=== PATIENT | female | born 1975 | race Caucasian/White ===

== ENCOUNTER 2019-12-18 10:02 | Day surgery (SDC) | payer BC, SELFPAY ==
[2019-12-16 12:27] VITALS: BMI 21.4
--- NOTE | 2019-12-18 09:33 | P.HP_ITS ---
Same Day Surgery H&P Indication for Procedure/HPI DATE OF PROCEDURE: December 18, 2019 CHIEF COMPLAINT/INDICATIONFOR SURGICAL PROCEDURE: Family history of colon cancer PREOP DIAGNOSIS: Family history of colon cancer PLANNED PROCEDRUE: Operation Date: 12/18/19 11:10 Proposed Procedures p Colonoscopy 81794 Z12.11(Not Applicable) - Elian Moya MD Medications/Allergies* Home Medications Medication Instructions Recorded Confirmed Type [id number] K 1 tab-cap PO DAILY 12/16/19 12/16/19 History [Multi For Her] Allergies/Adverse Reactions Allergy/AdvReac Type Severity Reaction Status Date / Time No Known Allergies Allergy Verified 11/02/19 10:35 Pertinent History/Comorbid Conditions* Family History (Updated 10/12/19 @ 13:16 by Edna Beasley LPN) Cancer Grandmother Social History Smoking and tobacco status: never smoked Second hand smoke exposure: No Pertinent Exam Findings alert, oriented x 3, clear to auscultation bilaterally, regular rate & rhythm, operative site marked and procedure specific exam findings Recommendations Surgery/Procedure today Coding Level of Care Code Acute [employer] for [employer]
[2019-12-18 10:16] VITALS: BP 112/77; PULSE 89; RESP 16; TEMP 37.1; O2SAT 99
[2019-12-18 10:22] LABS: OR HCG Qualitative Urine Negative (Negative)
[2019-12-18] MEDS: sodium chloride 0.9% 1,000 ML 30 ML IV (10:23)
--- NOTE | 2019-12-18 10:41 | ANES.PREANE2 ---
Pre-Anesthetic Assessment Pre-Anesthetic Assessment: Height/Weight: Height 1.7 m Weight 62.142 kg Temp Pulse Resp BP Pulse Ox 98.8 F 89 16 112/77 99 12/18/19 10:16 12/18/19 10:16 12/18/19 10:16 12/18/19 10:16 12/18/19 10:16 Preop Diagnosis: c Proposed Procedure: Operation Date: 12/18/19 11:10 Proposed Procedures p Colonoscopy 26418 Z12.11(Not Applicable) - Elian Moya MD Last intake: Intake Last Liquid Date 12/18/19 Last Liquid Time 00:00 Last Solid Date 12/16/19 Last Solid Time 00:00 Social: Social History: No alcohol and No tobacco Exam: Pre-Anes Outpt Exam: alert, oriented x 3, clear to auscultation bilaterally and regular rate & rhythm Airway: Submandibular: WNL Cervical ROM: WNL MP: 2 Dentition: Other (teeth ok) History/ROS: No significant history except as noted Pulmonary: Pulmonary: None reported CV/HEM: CV/HEM: None reported : : None reported Hepatic: Hepatic: None reported GI: GI: None reported Metabolic: Metabolic: None reported Musc/skel: Musc/skel: None reported Neuropsych: Neuropsych: None reported Anesthetic Plan: ASA status: 1 Anesthesia: Anesthesia Evaluation and MAC Risk of > 500 ml blood loss (7ml/kg in children): No Meds/Allergies Current Medications: Current Medications Generic Name Dose Route Start Last Admin Trade Name Freq PRN Reason Stop Dose Admin Sodium Chloride 1,000 mls @ 30 ml s/hr 12/18/19 09:45 12/18/19 10:23 Sodium Chloride 0.9% IV 12/19/19 09:44 30 mls/hr .Q24H TYRONE Administration PFSH Anesthesia PFSH: Medical History (Updated 12/18/19 @ 10:41 by Angel Brooks MD) Chronic constipation Family History Grandmother Cancer Social History Smoking and tobacco status: never smoked Second hand smoke exposure: No Data Anesthesia Other Labs: Laboratory Results - last 48 hr 12/18/19 10:21 Urine HCG, Qual Negative Cardiac Studies: No Data to Display
[2019-12-18 12:18] VITALS: BP 87/57; PULSE 68; RESP 16; TEMP 36.2; O2SAT 100
[2019-12-18 12:40] VITALS: BP 114/79; PULSE 66; RESP 18; O2SAT 100
== END 2019-12-18 12:47 | disposition home or self-care (01) ==
PROVIDERS: PCP Registered Nurse; Visit Provider Internal Medicine
PROC: 0DJD8ZZ Inspection of Lower Intestinal Tract, Via Natural or Artificial Opening Endoscopic (ICD-10-PCS; CPT 45378; principal; 2019-12-18 11:05)
DX: Z12.11 Encounter for screening for malignant neoplasm of colon (principal)
CPT/HCPCS: 12345; 45378; 81025; 84703; J2704; J7030

== ENCOUNTER 2021-12-22 14:30 | Outpatient (CLI) | payer OTHER, SELFPAY ==
--- NOTE | 2021-12-22 14:38 | US_ITS ---
WS: [id number] ULTRASOUND THYROID TECHNIQUE: Ultrasound of the thyroid. CLINICAL INFORMATION: FEELING OF LUMP IN THROAT/HOARSENESS X 3 MONTHS COMPARISON: None. FINDINGS: Thyroid: Right and left thyroid lobes are normal in size and echotexture. 2 tiny incidental cystic no dules RIGHT thyroid. Right thyroid lobe: 4.7 cm x 1.8 cm x 1.4 cm Left thyroid lobe: 3.9 cm x 1.5 cm x 2.0 cm. Isthmus: 0.3 mm. Cervical lymphadenopathy: Slightly prominent but normal-appearing lymph node RIGHT cervical chain jameson suring 1.5 x 0.7 x 0.5 cm with preserved fatty hilum. US/US thyroid [id number] IMPRESSION: 1. 2 incidental tiny cystic lesions in the RIGHT thyroid. 2. No suspicious thyroid nodules. 3. Slightly prominent but normal-appearing RIGHT cervical chain lymph node.
== END 2021-12-22 14:31 | disposition home or self-care (01) ==
LOC: RAD 14:36
PROVIDERS: PCP Registered Nurse; Visit Provider Registered Nurse
DX: R49.0 Dysphonia (principal); E07.9 Disorder of thyroid, unspecified
CPT/HCPCS: 76536